=== PATIENT | male | born 1965 | race Hispanic/Latino ===

== ENCOUNTER 2017-03-21 21:07 | Emergency (ER) | payer SELFPAY ==
[2017-03-21] MEDS ORDERED: ZOFRAN ONE (22:03)
[2017-03-21] MEDS ORDERED: ASPIRIN PO ONE (22:07)
[2017-03-21] MEDS ORDERED: ZOFRAN IM ONE (22:08)
[2017-03-21] MEDS ORDERED: NACL 0.9% 1000 ML 1,000 ML IV ONE ×2 (22:41→23:50)
[2017-03-21 22:49] LABS: Anion Gap 25 mmol/L; BUN/Creatinine Ratio 23; Blood Urea Nitrogen 21 mg/dL (9-20); Calcium 9.5 mg/dL (8.4-10.2); Carbon Dioxide 25 mmol/L (22-30); Chloride 91.5 mmol/L (98-107); Glucose 460 mg/dL (75-100); Potassium 4.2 mmol/L (3.6-5.0); Sodium 137 mmol/L (137-145)
[2017-03-21] MEDS ORDERED: ZOFRAN IV ONE (22:49)
--- NOTE | 2017-03-21 22:56 | Emergency Department Report ---
ED Chest Pain HPI - General Chief Complaint: Chest Pain Stated Complaint: CHEST PAIN Time Seen by Provider: 03/21/17 22:47 Source: patient Mode of arrival: Ambulatory Limitations: No Limitations - History of Present Illness Initial Comments: Patient is 52 years old male with no significant past medical history's came today with chest pain described as epigastric started this morning associated with nausea vomiting and diarrhea. Denied any fever or shortness of breath. MD Complaint: chest pain -: This afternoon Pain Location: epigastric Pain Radiation: back Severity scale (0 -10): 8 Quality: ripping re: nausea, vomting. denies: diaphoresis - Related Data Previous Rx's Medication Instructions Recorded Last Taken Type Ciprofloxacin HCl [Ciprofloxacin 500 mg PO Q12H #14 tab 03/22/17 Unknown Rx TAB] Ondansetron [Zofran Odt] 4 mg PO Q8HR PRN #14 tab.rapdis 03/22/17 Unknown Rx Allergies Allergy/AdvReac Type Severity Reaction Status Date / Time No Known Allergies Allergy Verified 03/21/17 22:15 Heart Score - HEART Score History: Moderately suspicious EKG: Non-specific Age: 45-65 Risk factors: 1-2 risk factors Troponin: < normal limit HEART Score: 4 - Critical Actions Critical Actions: 4-6 pts:12-16.6% risk of adverse cardiac event. Should be admitted ED Review of Systems ROS: Stated complaint: CHEST PAIN Other details as noted in HPI Comment: All other systems reviewed and negative Constitutional: denies: chills, fever Respiratory: denies: cough, orthopnea, shortness of breath Cardiovascular: chest pain. denies: palpitations, dyspnea on exertion Gastrointestinal: abdominal pain, nausea, vomiting, diarrhea. denies: constipation, hematemesis, melena, hematochezia Genitourinary: denies: urgency, frequency Neurological: denies: headache, numbness, paresthesias ED Past Medical Hx - Past Medical History Previous Medical History?: Yes Hx Hypertension: Yes Hx Diabetes: Yes - Surgical History Past Surgical History?: Yes - Social History Smoking Status: Never Smoker Substance Use Type: None - Medications Home Medications: Home Medications Medication Instructions Recorded Confirmed Last Taken Type Ciprofloxacin HCl [Ciprofloxacin 500 mg PO Q12H #14 tab 03/22/17 Unknown Rx TAB] Ondansetron [Zofran Odt] 4 mg PO Q8HR PRN #14 tab.rapdis 03/22/17 Unknown Rx ED Physical Exam - General Limitations: No Limitations General appearance: alert - Head Head exam: Present: normocephalic - ENT ENT exam: Present: normal exam - Neck Neck exam: Present: normal inspection - Respiratory Respiratory exam: Present: normal lung sounds bilaterally. Absent: wheezes, rales, rhonchi - Cardiovascular Cardiovascular Exam: Present: regular rate, normal rhythm, normal heart sounds - GI/Abdominal GI/Abdominal exam: Present: soft, tenderness, normal bowel sounds. Absent: distended, guarding, rebound, rigid, mass, bruit, pulsatile mass - Extremities Exam Extremities exam: Present: normal inspection - Back Exam Back exam: Present: normal inspection. Absent: tenderness, CVA tenderness (R), CVA tenderness (L) - Neurological Exam Neurological exam: Present: alert, oriented X3, CN II-XII intact, normal gait - Skin Skin exam: Present: warm, dry, normal color ED Course Vital Signs 03/21/17 03/21/17 03/21/17 21:54 23:00 23:15 Temperature 98.0 F Pulse Rate 101 H 101 H 91 H Respiratory 18 16 14 Rate Blood Pressure 141/85 154/88 147/84 [Left] O2 Sat by Pulse 99 97 95 Oximetry 03/21/17 03/22/17 03/22/17 23:34 01:00 01:33 Temperature 97.4 F L Pulse Rate 104 H 104 H Respiratory 16 Rate Blood Pressure 106/66 115/70 [Left] O2 Sat by Pulse 95 97 Oximetry - Reevaluation(s) Reevaluation #1: 03/21/17 23:53 Patient stated that he is feeling a whole much better. No vomiting at this moment. Reevaluation #2: 03/22/17 02:08 Patient stated that he is feeling much better no vomiting he stated that his symptoms is most likely due to food he ate yesterday at the restaurant. ED Medical Decision Making - Lab Data Result diagrams: 03/21/17 22:13 03/21/17 22:13 Critical care attestation.: If time is entered above; I have spent that time in minutes in the direct care of this critically ill patient, excluding procedure time. ED Disposition Clinical Impression: Abdominal pain, Hyperglycemia Disposition: DC-01 TO HOME OR SELFCARE Is pt being admited?: No Condition: Stable Instructions: Acute Abdominal Pain (ED), Gastroenteritis (ED)
[2017-03-21 23:01] LABS: Basophils % (Auto) 0.3 % (0.0-1.8); Eosinophils % (Auto) 0.1 % (0.0-4.3); Hematocrit 48.1 % (35.5-45.6); Hemoglobin 16.5 gm/dl (11.8-15.2); Mean Corpuscular HGB Conc 34 % (32-34); Mean Corpuscular Hemoglobin 30 pg (28-32); Mean Corpuscular Volume 88 fl (84-94); Platelet Count 163 K/mm3 (140-440); Red Blood Count 5.46 M/mm3 (3.65-5.03); Red Cell Distribution Width 13.1 % (13.2-15.2); White Blood Count 12.2 K/mm3 (4.5-11.0)
[2017-03-21] MEDS ORDERED: MORPHINE IV ONE (23:05)
[2017-03-21 23:07] LABS: Creatine Kinase MB 1.8 ng/mL (0.0-4.0)
[2017-03-21 23:08] LABS: Alanine Aminotransferase 14 units/L (7-56); Albumin 4.4 g/dL (3.9-5); Albumin/Globulin Ratio 1.1 %; Alkaline Phosphatase 98 units/L (35-129); Amylase 70 units/L (27-131); Creatine Kinase 38 units/L (55-170); Lipase 8 units/L (13-60); Total Protein 8.4 g/dL (6.3-8.2)
[2017-03-21 23:11] LABS: Bilirubin,Direct < 0.2 mg/dL (0-0.2); Bilirubin,Indirect 0.7 mg/dL
[2017-03-21 23:12] LABS: INR 0.95 (0.87-1.13)
[2017-03-21 23:13] LABS: Partial Thromboplastin Time 26.6 Sec. (24.2-36.6)
[2017-03-21] MEDS ORDERED: ZOSYN/NS 4.5GM/100ML 4.5 GM/100 ML VIAL IV ONE (23:51)
[2017-03-22] MEDS ORDERED: NACL ONE (00:39)
[2017-03-22] MEDS ORDERED: NACL 0.9% 1000 ML 1,000 ML IV ONE (02:04)
[2017-03-22] MEDS ORDERED: REGLAN IV ONE (02:04)
[2017-03-22 03:31] VITALS: BP 98/66
--- NOTE | 2017-03-22 03:36 | Cat Scan Report ---
FINAL REPORT EXAM: CT ABDOMEN PELVIS W CONTRAST. HISTORY: Abdominal pain. TECHNIQUE: Axial CT images of the abdomen and pelvis were obtained, following the administration of intravenous contrast only. Delayed axial images and coronal and sagittal reformatted images were also obtained. No prior studies are available for comparison. FINDINGS: The liver, biliary tree, distended gallbladder, pancreas, spleen, and adrenal glands are unremarkable. There is no discrete renal mass. There is a 2-3 mm obstructing calculus in the left renal mid to lower pole. There is no urinary tract obstruction. Evaluation of the bowel is limited due to lack of oral contrast. The majority of the colon is contracted, and underlying wall thickening cannot be excluded. There is no intestinal obstruction or free air. There are small bilateral fat containing inguinal hernias, left greater than right. The appendix is air-filled, without evidence of acute appendicitis. The appendiceal tip extends into the proximal aspect of the right inguinal hernia. There is mild haziness of the central mesenteric fat in the mid-upper abdomen, suggestive mild mesenteric panniculitis. There is a 2.0 cm fat containing periumbilical ventral hernia. The abdominal aorta is normal in caliber. There is no pathologic abdominal or pelvic lymphadenopathy. There is no free or loculated fluid collection. The prostate gland is normal in size, with central calcifications. The distended urinary bladder is unremarkable, with no abnormal wall thickening or filling defect. [id number] spondylotic and degenerative changes are seen in the spine. There is an 8 mm calcified granuloma at the right posterior lung base. There is mild central bronchiectasis in the visualized lung bases. Mild subsegmental dependent changes are seen posteriorly. IMPRESSION: 1. 2-3 mm nonobstructing calculus in the left renal mid to lower pole. No urinary tract obstruction. 2. Mild haziness of the central mesenteric fat, suggestive of mild mesenteric panniculitis. 3. Small fat containing periumbilical ventral hernia. Bilateral fat containing inguinal hernias, with tip of the appendix extending into the proximal right inguinal hernia. 4. No intestinal obstruction or free air. Normal CT appearance of the appendix. Collapsed/contracted colon, and underlying wall thickening cannot be evaluated.
--- NOTE | 2017-03-22 08:19 | XRay Report ---
PORTABLE CHEST: Chest pain. An AP portable view of the chest demonstrates a normal cardiac contour considering the limits of this technique. The lungs are clear with no evidence of infiltrate, fluid or failure. IMPRESSION: Normal portable chest.
== END 2017-03-22 04:07 | disposition home or self-care (01) ==
LOC: ED 21:07
DX: R10.13 Epigastric pain (principal); E11.65 Type 2 diabetes mellitus with hyperglycemia; R11.2 Nausea with vomiting, unspecified; R19.7 Diarrhea, unspecified; I10 Essential (primary) hypertension
CPT/HCPCS: 36415; 71010; 74177; 80048; 80074; 82140; 82150; 82550; 82553; 82805; 82962; 83690; 83880; 84484; 85025; 85379; 85610; 85730; 86850; 86900; 86901; 93005; 93010; 96361; 96365; 96372; 96375; 96376; 99285; J2270; J2405; J2543; J2765; J7030; Q9967; J1815

== ENCOUNTER 2017-03-23 15:15 | Emergency (ER) | payer SELFPAY ==
[2017-03-23 15:41] VITALS: BP 138/89
--- NOTE | 2017-03-23 15:41 | Event Note ---
Date: 03/23/17 EKG is morphologically abnormal, however today's EKG is unchanged from prior EKG. It is not morphologically consistent with STEMI. EKG from today an old EKG transmitted to the photographic restorer on-call, Dr. Wilkins, independently reviewed the images and agrees that the EKG does not meet STEMI criteria.
[2017-03-23 16:06] LABS: Basophils % (Auto) 0.8 % (0.0-1.8); Eosinophils % (Auto) 0.1 % (0.0-4.3); Hematocrit 44.3 % (35.5-45.6); Hemoglobin 15.5 gm/dl (11.8-15.2); Mean Corpuscular HGB Conc 35 % (32-34); Mean Corpuscular Hemoglobin 30 pg (28-32); Mean Corpuscular Volume 87 fl (84-94); Platelet Count 136 K/mm3 (140-440); Red Blood Count 5.11 M/mm3 (3.65-5.03); White Blood Count 8.8 K/mm3 (4.5-11.0)
[2017-03-23 16:25] LABS: Alanine Aminotransferase 13 units/L (7-56); Albumin 4.1 g/dL (3.9-5); Albumin/Globulin Ratio 1.2 %; Alkaline Phosphatase 86 units/L (35-129); Anion Gap 19 mmol/L; BUN/Creatinine Ratio 29; Blood Urea Nitrogen 20 mg/dL (9-20); Calcium 8.9 mg/dL (8.4-10.2); Carbon Dioxide 28 mmol/L (22-30); Chloride 97.1 mmol/L (98-107); Glucose 318 mg/dL (75-100); Potassium 3.8 mmol/L (3.6-5.0); Sodium 140 mmol/L (137-145); Total Protein 7.6 g/dL (6.3-8.2)
== END 2017-03-23 19:20 | disposition left against medical advice (07) ==
LOC: ED 15:15
DX: R07.9 Chest pain, unspecified (principal); Z53.21 Procedure and treatment not carried out due to patient leaving prior to being seen by health care provider
CPT/HCPCS: 36415; 80048; 80053; 84484; 85025; 93005; 93010